=== PATIENT | female | born 1990 | race Hispanic/Latino ===

== ENCOUNTER 2017-01-01 10:57 | Inpatient (IN) | payer OTHER ==
[~2017-01-01] VITALS: Ht 160 cm; Wt 90.3 kg
[2017-01-01 11:26] VITALS: BP 121/64
[2017-01-01 11:58] LABS: ABSOLUTE BASOPHIL COUNT 0 /CUMM (0.0-0.2); ABSOLUTE EOSINOPHIL COUNT 0 /CUMM (0.0-0.7); ABSOLUTE GRANULOCYTE CT 5.2 /CUMM (1.4-6.5); ABSOLUTE LYMPH COUNT 1.8 /CUMM (1.2-3.4); ABSOLUTE MONOCYTE COUNT 0.6 /CUMM (0.10-0.60); BASOPHIL % 0.1 % (0.0-2.0); EOSINOPHIL % 0.2 % (0-5); GRANULOCYTE % 67.8 % (42.2-75.2); HEMATOCRIT 29.4 % (37-47); MEAN CORPUSCULAR HGB 25.5 PG (27.0-31.0); MEAN CORPUSCULAR HGB CONC 32.2 G/DL (33.0-37.0); MEAN CORPUSCULAR VOLUME 79.1 FL (81.0-99.0); MEAN PLATELET VOLUME 7.4 FL (7.4-10.4); PLATELET COUNT 311 /CUMM (130-400); RBC DISTRIBUTION WIDTH 16.7 % (11.5-14.5); RED BLOOD CELL CT 3.72 /CUMM (4.20-5.40); WHITE BLOOD CELL COUNT 7.6 /CUMM (4.8-10.8)
--- NOTE | 2017-01-01 12:27 | History & Physical ---
General Information and HPI MD Statement: I have seen and personally examined TOPHER PINTO and documented this H&P. The patient is a 26 year old female at 39 [] weeks and [] days gestation who presented with a chief complaint of []. 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: none (2 abortions) Surgical History Pertinent Surgical History: none (2 abortions) Past Family/Social History Psychosocial History Smoking Status: Never Smoked Review of Systems Review of Systems: 13 point review of systems as stated in the HPI Exam & Diagnostic Data Last 24 Hrs of Vital Signs/I&O Vital Signs Date Time Temp Pulse Resp B/P B/P Pulse O2 O2 Flow FiO2 Mean Ox Delivery Rate 01/01 1126 121/64 Intake & Output 01/01 1600 01/01 0800 01/01 0000 Intake Total Output Total Balance Patient 199 lb Weight Obstetric Exam Wgt Gained During : 16 Pelvimetry: Tested to 8 pounds Dilation (cm): 3 Effacement (%): 80 Station: 0 Membranes: AROM Fluid: clear Fundal Height (cm): 39 Multiple Gestation? No Contractions: q 3 minutes Patient for Induction? Yes Shahid Score Shahid Score Response Value Cervix Position: anterior 2 Cervix Consistency: soft 2 Cervix Effacement: >80% 3 Cervix Dilation: 3-4 cm 2 Total 9 Physical Exam: Well-built female HEENT anicteric Lungs clear Breasts symmetrical without dimpling or discharge Abdomen soft estimated weight 3600 g extremities negative edema negative Homans Labs Blood Type & Rh: positive O+ Antibody Screen: Negative Hct/Hgb & Platelets #1: Hct/Hgb & Platelets #2: Rubella: Immune VDRL #1: on reactive VDRL #2: Nonreactive HbsAg: Negative HIV #1: Negative HIV #2 Negative 1 Hr P Group B Strep: Negative Initial Ultrasound: Negative Anatomy Ultrasound: normal normal Genetic Testing: Normal Assessment/Plan Assessment/Plan: Assessment is term elective induction Plan Pitocin observe closely for normal spontaneous vaginal delivery epidural and stable As Ranked By This Provider Problem List: 1. Core Measures/Miscellaneous Venous Thromboembolism VTE Risk Factors: / VTE Contraindications: No Contraindications VTE Diagnosis: No Beta Monica Is Beta Monica a Home Med? No Antibiotics Is Patient on Antibiotics? No
--- NOTE | 2017-01-01 17:39 | PN- Obstetrical ---
Subjective Subjective: NO COMPLAINTS JUST GOT EPIDURAL PLACED Objective Last 24 Hrs of Vital Signs/I&O Vital Signs Date Time Temp Pulse Resp B/P B/P Pulse O2 O2 Flow FiO2 Mean Ox Delivery Rate 01/01 1126 121/64 Intake & Output 01/01 1600 01/01 0800 01/01 0000 Intake Total Output Total Balance Patient 199 lb Weight Physical Exam: PE PLEASANT HF ABD SOFT BETWEEN CTX Obstetric Exam Dilation (cm): 5 Effacement (%): 90 Station: 0 Membranes: AROM Fluid: clear Multiple Gestation? No Contractions: Q 3 MINUTES Assessment/Plan Assessment/Plan ASSESS TERM INDUCTION PLAN PITOCIN
--- NOTE | 2017-01-01 23:09 | Labor & Delivery Summary ---
Delivery Summary Vaginal Delivery: Vaginal: vertex Episiotomy/Lacerations: Episiotomy/Lacerations: none Placenta: Placenta: spontanteous, normal, 3 vessel, nuchal cord (x_) (X1) Additional Comments: WITHOUT MECONIUM VIABLE FEMAL INFANT OVER INTACT PERINEUM.O+
[2017-01-02 09:53] LABS: ABSOLUTE BASOPHIL COUNT 0 /CUMM (0.0-0.2); ABSOLUTE EOSINOPHIL COUNT 0 /CUMM (0.0-0.7); ABSOLUTE LYMPH COUNT 2.4 /CUMM (1.2-3.4); ABSOLUTE MONOCYTE COUNT 1.3 /CUMM (0.10-0.60); BASOPHIL % 0.1 % (0.0-2.0); EOSINOPHIL % 0 % (0-5); GRANULOCYTE % 80.9 % (42.2-75.2); MEAN CORPUSCULAR HGB 25.6 PG (27.0-31.0); MEAN CORPUSCULAR HGB CONC 31.8 G/DL (33.0-37.0); MEAN CORPUSCULAR VOLUME 80.4 FL (81.0-99.0); MEAN PLATELET VOLUME 8.1 FL (7.4-10.4); PLATELET COUNT 319 /CUMM (130-400); RBC DISTRIBUTION WIDTH 16.6 % (11.5-14.5); RED BLOOD CELL CT 3.98 /CUMM (4.20-5.40)
[2017-01-02 10:02] LABS: WHITE BLOOD CELL COUNT 19.8 /CUMM (4.8-10.8)
--- NOTE | 2017-01-02 13:56 | PN- Post Delivery/GYN ---
Subjective Subjective: NO COMPLAINTS Objective Last 24 Hrs of Vital Signs/I&O PER CHART Physical Exam: PE PLEASANT HF IN NAD ABD SOFT NT FUNDUS FIRM NT LOCHIA MINIMAL EXT -HOMANS =1 EDEMA Assessment/Plan Assessment/Plan ASSESS S/P PLAN CONTPPC
[2017-01-03] MEDS ORDERED: IBUPROFEN800 M1 PO (09:24)
== END 2017-01-03 11:20 | DRG 560 ==
LOC: GNO 10:57
PROVIDERS: ADMIT Specialist
PROC: 10E0XZZ Delivery of Products of Conception, External Approach (ICD-10-PCS; principal; 2017-01-01)
DX: O69.81X0 Labor and delivery complicated by cord around neck, without compression, not applicable or unspecified (principal); Z3A.39 39 weeks gestation of pregnancy; Z37.0 Single live birth
CPT/HCPCS: GNOP; GNOS; 36415; 80307; 81001; J2210; J7120